=== PATIENT | female | born 1980 | race Two or more races ===

== ENCOUNTER 2020-11-04 16:35 | Emergency (ER) | payer OTHER ==
[~2020-11-04] VITALS: Ht 165.1 cm; Wt 58.5 kg
== END 2020-11-05 13:20 | disposition home or self-care (01) ==
LOC: ER 16:35
DX: E87.6 Hypokalemia (principal); N39.0 Urinary tract infection, site not specified; R50.9 Fever, unspecified

== ENCOUNTER 2022-04-11 02:56 | Emergency (ER) | payer OTHER ==
[~2022-04-11] VITALS: Ht 167.6 cm; Wt 63.5 kg
[2022-04-11] MEDS ORDERED: INTESTINEX680 M1 PO (03:33)
[2022-04-11] MEDS ORDERED: AMOX-CLAV 875-1 EACH PO (03:33)
[2022-04-11] MEDS ORDERED: KETO10TA2 PO (03:33)
== END 2022-04-11 04:01 | disposition home or self-care (01) ==
LOC: ER 02:56
DX: L03.011 Cellulitis of right finger (principal); T63.441A Toxic effect of venom of bees, accidental (unintentional), initial encounter; Z91.018 Allergy to other foods